=== PATIENT | female | born 1985 | race American Indian/Alaskan Native ===

== ENCOUNTER 2017-02-02 05:08 | Emergency (ER) | payer SELFPAY ==
[2017-02-02 05:26] VITALS: BP 135/105
[2017-02-02] MEDS ORDERED: TYLENOL PO ONE (05:26)
[2017-02-02] MEDS ORDERED: TYLENOL ONE (05:27)
[2017-02-02] MEDS ORDERED: MOTRIN PO ONE (06:56)
[2017-02-02] MEDS ORDERED: NORCO 5/325 PO ONE (07:25)
[2017-02-02] MEDS ORDERED: CLEOCIN IM ONE (07:25)
--- NOTE | 2017-02-02 07:32 | Emergency Department Report ---
ED ENT HPI - General Chief complaint: Dental/Oral Stated complaint: FACIAL PAIN Time Seen by Provider: 02/02/17 07:13 Source: patient Mode of arrival: Ambulatory Limitations: No Limitations - History of Present Illness Initial comments: PT c/o facial pain since 0200. PT states she was sleeping and woke up with 10/ 10 L sided facial pain. PT states she took a goody's powder but no improvement. PT states she has had a left sided toothache x 1 week. Pt has not had any recent dental work. PT states she called 911 to bring her to the hospital. PT has no fever, chills , headache, or vomiting. MD complaint: tooth pain -: Gradual (toothache x 1 week ), Sudden (woke from pain at 0200 ) 1 - pain 2 - pain Severity: severe Severity scale (0 -10): 10 Quality: stabbing, constant Consistency: constant Improves with: none Worsens with: none Context- Dental: history of dental caries, poor dental care Associated Symptoms: toothache. denies: fever, pain with swallowing, sore throat - Related Data Previous Rx's Medication Instructions Recorded Last Taken Type Acetaminophen/Codeine [Tylenol #3] 1 tab PO Q6H PRN #8 tab 02/02/17 Unknown Rx Clindamycin [Clindamycin CAP] 300 mg PO Q8H #30 cap 02/02/17 Unknown Rx Allergies Allergy/AdvReac Type Severity Reaction Status Date / Time tramadol Allergy Dizziness Verified 07/05/15 02:42 ED Dental HPI - General Chief complaint: Dental/Oral Stated complaint: FACIAL PAIN Time Seen by Provider: 02/02/17 07:13 Source: patient Mode of arrival: Ambulatory Limitations: No Limitations - Related Data Previous Rx's Medication Instructions Recorded Last Taken Type Acetaminophen/Codeine [Tylenol #3] 1 tab PO Q6H PRN #8 tab 02/02/17 Unknown Rx Clindamycin [Clindamycin CAP] 300 mg PO Q8H #30 cap 02/02/17 Unknown Rx Allergies Allergy/AdvReac Type Severity Reaction Status Date / Time tramadol Allergy Dizziness Verified 07/05/15 02:42 ED Review of Systems ROS: Stated complaint: FACIAL PAIN Other details as noted in HPI Comment: All other systems reviewed and negative Constitutional: denies: chills, fever ENT: ear pain, dental pain. denies: throat pain, congestion Gastrointestinal: nausea. denies: abdominal pain, vomiting Genitourinary: denies: abnormal menses ED Past Medical Hx - Past Medical History Previous Medical History?: Yes Hx Psychiatric Treatment: Yes (Bipolar II w/ pyschosis, anxiety) Additional medical history: endometriosis. Herpes - Surgical History Past Surgical History?: Yes Hx Appendectomy: Yes Additional Surgical History: X2, , D&C - Social History Smoking Status: Current Every Day Smoker Substance Use Type: Alcohol - Medications Home Medications: Home Medications Medication Instructions Recorded Confirmed Last Taken Type Acetaminophen/Codeine [Tylenol #3] 1 tab PO Q6H PRN #8 tab 02/02/17 Unknown Rx Clindamycin [Clindamycin CAP] 300 mg PO Q8H #30 cap 02/02/17 Unknown Rx ED Physical Exam - General Limitations: No Limitations General appearance: alert, other (pt laying in the position, holding her head and groaning) - Head Head exam: Present: atraumatic, normocephalic, normal inspection - Expanded Head Exam Expanded Head exam: Absent: contusion, hematoma, racoon eyes, mccain's sign, general tenderness, tenderness of temporal artery - Eye Eye exam: Present: normal appearance, PERRL, EOMI Pupils: Present: normal accommodation - ENT ENT exam: Present: normal orophraynx, mucous membranes moist, TM's normal bilaterally, normal external ear exam - Expanded ENT Exam Expanded Mouth exam: Absent: drooling, trismus Teeth exam: Present: dental tenderness # (tooth 17, severe decay ), gingival enlargement, other (no palpable abscess ) - Neck Neck exam: Present: normal inspection, full ROM. Absent: tenderness, lymphadenopathy - Respiratory Respiratory exam: Present: normal lung sounds bilaterally. Absent: respiratory distress - Cardiovascular Cardiovascular Exam: Present: regular rate, normal rhythm, normal heart sounds - GI/Abdominal GI/Abdominal exam: Present: soft. Absent: tenderness - Extremities Exam Extremities exam: Present: normal inspection, full ROM - Back Exam Back exam: Present: normal inspection, full ROM - Neurological Exam Neurological exam: Present: alert, oriented X3 - Psychiatric Psychiatric exam: Present: normal affect, normal mood - Skin Skin exam: Present: warm, dry, intact, normal color ED Course Vital Signs 02/02/17 02/02/17 05:19 05:30 Temperature 98.3 F Pulse Rate 77 Respiratory 18 18 Rate Blood Pressure 135/105 O2 Sat by Pulse 97 Oximetry - Reevaluation(s) Reevaluation #1: 02/02/17 07:40 PT had goody's powder hot kettle tender, pt given tylenol and motrin while in ED. PT still crying in pain. PT states she has a ride home. Will treat her acute pain with 1 tab [place] 5/325mg. PT aware she will need to follow up with a dentist. PT has no questions at this time. - Pulse Oximetry Interpretation Digit-Finger Initial Pulse Oximetry Readin Actions Taken: none ED Medical Decision Making - Differential Diagnosis headache, dental abscess, toothache Critical Care Time: No Critical care attestation.: If time is entered above; I have spent that time in minutes in the direct care of this critically ill patient, excluding procedure time. ED Disposition Clinical Impression: Tooth caries, Otalgia, left ear Disposition: DISCHARGED TO HOME OR SELFCARE Is pt being admited?: No Does the pt Need Aspirin: No Condition: Stable Instructions: Dental Abscess (ED), Dental Caries (ED), Toothache (ED) Additional Instructions: Good oral hygiene No driving or ETOH after Tylenol #3 Follow up with PCP in 2-3 days for bp recheck Follow up with dentist in 2-3 days finish all of your antibiotics Prescriptions: Acetaminophen/Codeine [Tylenol #3] 1 tab PO Q6H PRN #8 tab PRN Reason: Pain , Severe (7-10) Clindamycin [Clindamycin CAP] 300 mg PO Q8H #30 cap Referrals: PRIMARY CAREMD [Primary Care Provider] - 3-5 Days GEOVANNA HEATH MD [Staff Physician] - 3-5 Days [facility] [Outside] - 3-5 Days Time of Disposition: 07:44
== END 2017-02-02 08:17 | disposition home or self-care (01) ==
LOC: ED 05:08
DX: K02.9 Dental caries, unspecified (principal); H92.02 Otalgia, left ear; F31.81 Bipolar II disorder; F17.200 Nicotine dependence, unspecified, uncomplicated; Z88.8 Allergy status to other drugs, medicaments and biological substances
CPT/HCPCS: 96372